=== PATIENT | female | born 1975 | race American Indian/Alaskan Native ===

== ENCOUNTER 2017-07-30 14:26 | Emergency (ER) | payer MEDICAID ==
[2017-07-30 14:35] VITALS: BP 133/82
== END 2017-07-30 21:15 ==
LOC: ED 14:26
DX: R11.10 Vomiting, unspecified (principal); Z53.21 Procedure and treatment not carried out due to patient leaving prior to being seen by health care provider

== ENCOUNTER 2019-05-18 00:52 | Emergency (ER) | payer SELFPAY ==
[2019-05-18] MEDS ORDERED: IBUPROFEN 600 MG TAB PO ONE (03:00)
[2019-05-18 06:52] VITALS: BP 123/75
--- NOTE | 2019-05-18 08:38 | Emergency Department Report ---
Chief Complaint: Dental/Oral Stated Complaint: TOOTHACHE Time Seen by Provider: 05/18/19 08:12 - HPI History of Present Illness: 43-year-old -[place] female presents to the emergency room for left lower teeth pain for 24 hours. Patient states that she broke her tooth problem without 6-9 months ago. Patient has not followed up with a dentist. Patient reports that she took Tylenol at 9 PM yesterday. Patient denies taking any Motrin or Aleve. - Exam Vital Signs: Vital Signs 05/18/19 05/18/19 00:58 06:51 Temperature 98.7 F 98.2 F Pulse Rate 81 76 Respiratory 18 16 Rate Blood Pressure 137/83 123/75 O2 Sat by Pulse 100 100 Oximetry Physical Exam: Patient's alert and oriented no acute distress nontoxic in appearance Facials nonstop swelling no tenderness Mouth third molar left lower jaw has an opening no abscess appreciated MSE screening note: Focused history and physical exam performed. Due to findings the following was ordered: 43-year-old -Mex[place] female presents to the emergency room for left lower teeth pain for 24 hours. Patient states that she broke her tooth problem without 6-9 months ago. Patient has not followed up with a dentist. Patient reports that she took Tylenol at 9 PM yesterday. Patient denies taking any Motrin or Aleve. Commend patient to take [id number] Motrin and to follow-up with a dentist. ED Disposition for [place] Disposition: Z- MED SCREENING EXAM-LEFT Is pt being admited?: No Does the pt Need Aspirin: No Condition: Stable Additional Instructions: Take ibuprofen or Aleve for pain management. Fracture mouth followed warm salt water. Follow-up with a dentist established several below for your convenience. Referrals: PRIMARY CARE, [Primary Care Provider] - 3-5 Days [facility] [Outside] - 3-5 Days [facility] [Outside] - 3-5 Days [facility] [Outside] - 3-5 Days
== END 2019-05-18 08:42 | disposition left against medical advice (07) ==
LOC: ED 00:52
DX: K08.89 Other specified disorders of teeth and supporting structures (principal)